=== PATIENT | male | born 1955 | race Caucasian/White ===

== ENCOUNTER 2023-12-29 22:23 | Emergency (ER) | payer BC ==
[~2023-12-29] VITALS: Ht 175.3 cm; Wt 92.1 kg
[2023-12-29] MEDS ORDERED: BASAGLAR T100 UNIT/1 (22:35)
[2023-12-29] MEDS ORDERED: JARDIANCE25 MG (22:36)
[2023-12-29] MEDS ORDERED: METFORMIN HCL1000 MG (22:36)
[2023-12-29] MEDS ORDERED: VENTOLIN HFA18 GM (22:36)
[2023-12-29] MEDS ORDERED: NOVOLIN N100 UNIT/2 (22:36)
[2023-12-29] MEDS ORDERED: LOVASTATIN10 MG (22:37)
[2023-12-29] MEDS ORDERED: LIPITOR10 MG (22:37)
[2023-12-29] MEDS ORDERED: GLUCAGON,HUMAN RECOMBINANT 1 MG/ML VIAL IV ONE (22:45)
[2023-12-29] MEDS ORDERED: NIFEdipine 10 MG CAP PO ONE (22:45)
[2023-12-29 22:54] LABS: BASOPHILS 1.1 % (0-2); EOSINOPHILS 3.1 % (0-6); HEMATOCRIT 48.4 % (35.0-50.0); LYMPHOCYTES 17.2 % (24-44); MCH 30.6 (27-36); MCHC 33.1 g/dl (30-36); MCV 92.3 fl (81-99); MONOCYTES 9.6 % (0-12); PLATELET COUNT 244 K/uL (140-440); RBC 5.24 M/ul (4.3-5.7); RDW 13.8 (10.5-15.0)
[2023-12-29 23:09] LABS: ALBUMIN 3.9 g/dL (3.4-5.0); ALBUMIN/GLOBULIN RATIO 1.11 (1.1-2.4); ANION GAP 15.6 (7-21); BILIRUBIN, TOTAL 0.4 ng/dL (0.2-1.0); BUN/CREATININE RATIO 18.75 (6.0-28.6); CALCIUM 9.4 mg/dL (8.5-10.1); CREATININE, SERUM 0.96 mg/dL (0.70-1.30); POTASSIUM 3.6 mmol/L (3.5-5.1); PROTEIN, TOTAL 7.4 g/dL (6.4-8.2)
[2023-12-30] MEDS ORDERED: DEXTROSE 5% - NACL 0.9% 1,000 ML IV SCH (01:00)
[2023-12-30] MEDS ORDERED: DEXTROSE 50% 50 ML SYR IV ONE (01:00)
[2023-12-30 03:08] VITALS: BP 136/72
== END 2023-12-30 03:08 | disposition home or self-care (01) ==
LOC: ED 22:23
PROVIDERS: Emergency Medicine
DX: T18.128A Food in esophagus causing other injury, initial encounter (principal); E11.9 Type 2 diabetes mellitus without complications; Z79.4 Long term (current) use of insulin; Z79.84 Long term (current) use of oral hypoglycemic drugs; Z79.899 Other long term (current) drug therapy; W44.F3XA Food entering into or through a natural orifice, initial encounter
CPT/HCPCS: 36415; 71045; 80053; 85025; 96361; 96374; 96375; 99285-25; J1610; J7042